=== PATIENT | female | born 2005 | race Caucasian/White ===

== ENCOUNTER → 2025-05-10 | Outpatient (CLI) | payer OTHER | LOC: M PLAIMG 07:05 | DX: M25.562 Pain in left knee (principal); M70.42 Prepatellar bursitis, left knee; S83.8X2A Sprain of other specified parts of left knee, initial encounter; X58.XXXA Exposure to other specified factors, initial encounter; Y92.9 Unspecified place or not applicable; Y93.9 Activity, unspecified; Y99.9 Unspecified external cause status ==